=== PATIENT | female | born 1975 | race Caucasian/White ===

== ENCOUNTER 2025-02-17 06:16 | Day surgery (SDC) | payer BC, OTHER ==
[2025-02-13 09:22] VITALS: BMI 28.9
[2025-02-17] MEDS ORDERED: LIDOCAINE HCL/PF 2% SDV 5ML VIAL ONE (07:13)
[2025-02-17] MEDS ORDERED: PROPOFOL 20 ML ONE (07:14)
[2025-02-17] MEDS ORDERED: MIDAZOLAM HCL 2 MG/2 ML SINGLE DOSE VIAL ONE (07:14)
[2025-02-17] MEDS ORDERED: SUCCINYLCHOLINE CHLORIDE 200 MG/10 ML SYRINGE ONE (07:14)
[2025-02-17] MEDS ORDERED: LIDOCAINE 1%/EPI 1:100000 (20 ML MULTI DOSE VIAL) ONE ×3 (07:19→10:20)
[2025-02-17] MEDS ORDERED: OXYMETAZOLINE 0.05% NASAL SOLUTION 15 ML BOTTLE NS ONE (07:19)
[2025-02-17] MEDS ORDERED: TRANEXAMIC ACID 1000 MG/10 ML VIAL ONE (07:34)
[2025-02-17] MEDS ORDERED: ROCURONIUM BROMIDE 50 MG/5 ML SYRINGE ONE (08:06)
[2025-02-17] MEDS ORDERED: ceFAZolin SODIUM 1 GM VIAL ONE (08:12)
[2025-02-17] MEDS ORDERED: DEXAMETHASONE SOD PHOSPHATE 4 MG/1 ML VIAL ONE (08:12)
[2025-02-17] MEDS ORDERED: oxyCODONE HCL 5 MG TABLET PO PRN ×4 (08:33→12:25)
[2025-02-17] MEDS ORDERED: PROMETHAZINE HCL 25 MG/1 ML VIAL IVPB PRN (08:33)
[2025-02-17] MEDS ORDERED: ONDANSETRON 4 MG/2 ML VIAL IVPUSH PRN (08:33)
[2025-02-17] MEDS ORDERED: LACTATED RINGERS SOLUTION 1,000 ML IV SCH ×2 (08:45→12:30)
[2025-02-17] MEDS ORDERED: BUPIVACAINE HCL/PF 0.5% (5MG/ML) 10 ML VIAL ONE (09:58)
[2025-02-17] MEDS ORDERED: ONDANSETRON 4 MG/2 ML VIAL ONE (10:08)
[2025-02-17] MEDS ORDERED: ONDANSETRON 4 MG/2 ML VIAL IVPB PRN (12:25)
[2025-02-17] MEDS ORDERED: ACETAMINOPHEN 1000 MG/100 ML BAG IVPB ONE (12:45)
[2025-02-17 13:35] VITALS: TEMP 97.7
[2025-02-17 14:09] VITALS: BP 129/78; PULSE 79; RESP 19
== END 2025-02-17 14:13 | disposition home or self-care (01) ==
LOC: FASU 06:16
PROVIDERS: ATTEND Plastic Surgery
PROC: 0NSBXZZ Reposition Nasal Bone, External Approach (ICD-10-PCS; principal; 2025-02-17 08:41)
DX: S02.2XXG Fracture of nasal bones, subsequent encounter for fracture with delayed healing (principal); J34.2 Deviated nasal septum; J98.8 Other specified respiratory disorders; M95.0 Acquired deformity of nose; X58.XXXD Exposure to other specified factors, subsequent encounter
CPT/HCPCS: 81025; 94760